=== PATIENT | female | born 1945 | race American Indian/Alaskan Native ===

== ENCOUNTER 2021-05-24 21:38 | Emergency (ER) | payer MEDICARE ==
--- NOTE | 2021-05-24 21:59 | Emergency Department Report ---
Blank Doc - Documentation Documentation: [facility] Consult Note # Demographics Consult Type: Acute Stroke Level 1 (0-4.5 hrs) Patient Location: Emergency Room First Name: Clau Last Name: Christos Age: 75 Gender: Female Facility: [facility] Time of Initial Page (): 05/24/2021, 21:30 Time of Return Call ( Time): 05/24/2021, 21:30 # HPI History: 1800 was last well per EMS, then at 2100 found down and noted to have facial droop and weakness on the right. # Scores Time of exam and NIHSS (): 05/24/2021, 21:45 Level of Consciousness 1a: [0] = Alert; keenly responsive LOC Questions 1b: [2] = Answers neither correctly LOC Commands 1c: [0] = Performs both tasks correctly Best Gaze 2: [0] = Normal Visual 3: [0] = No visual loss Facial Palsy 4: [0] = Normal symmetrical movements Motor Arm Left 5a: [0] = No drift Motor Arm Right 5b: [3] = No effort against gravity Motor Leg Left 6a: [0] = No drift Motor Leg Right 6b: [3] = No effort against gravity Limb Ataxia 7: [0] = Absent Sensory 8: [0] = Normal Best Language 9: [3] = Mute Dysarthria 10: [0] = Normal Extinction and Inattention 11: [0] = No abnormality NIHSS Total: 11 # Data Time Head CT personally read by me (): 05/24/2021, 21:[address]: no bleed early ischemic change preliminarily reviewed by me, please refer to radiology read for official reading # Assessment Impression: Ischemic Stroke (Acute) # Plan Thrombolytic/Intervention: NOT IV Thrombolysis or IA Intervention candidate Thrombolytic Exclusion (< 3 hour window): time of onset unclear Thrombolytic Exclusion: pt with late acute/subacute left MCA stroke on CT, making her last well time suspected to be over 4.5 hours old Intraarterial Exclusion: unfavorable imaging/hypodensity Blood Pressure Management: nicardipine labetolol Target Blood Pressure: SBP < 220 SBP > 100 Labs: hemoglobin A1c lipid panel Imaging: (urgency: STAT): CT Angiogram Head and CT Angiogram Neck AND call back with results if abnormal Imaging: (urgency: routine): MRI Brain without contrast Diagnostic Test: echo without bubble study Therapy/Evaluation: NPO until swallow evaluation PT/OT evaluation speech/swallow consultation Medication: start statin with goal of LDL < 70 DVT Prophylaxis: SCD Other: LDL < 70 If patient has any neurological deterioration please call me back immediately permissive hypertension telemetry monitoring I have discussed my recommendations with the referring provider # Logistics Telemedicine: Interactive 2 way audio and visual telecommunication technology was utilized during this visit
[2021-05-24 22:09] LABS: Basophils % (Auto) 0.6 % (0.0-1.8); Eosinophils # (Auto) 0.1 K/mm3 (0.0-0.4); Eosinophils % (Auto) 1.1 % (0.0-4.3); Lymphocytes # (Auto) 0.9 K/mm3 (1.2-5.4); Lymphocytes % (Auto) 10.9 % (13.4-35.0); Mean Corpuscular HGB Conc 32 % (30-34); Mean Corpuscular Volume 93 fl (79-97); Monocytes # (Auto) 0.6 K/mm3 (0.0-0.8); Monocytes % (Auto) 7.3 % (0.0-7.3); Platelet Count 237 K/mm3 (140-440); Red Blood Count 4.43 M/mm3 (3.65-5.03); Red Cell Distribution Width 13.4 % (13.2-15.2)
--- NOTE | 2021-05-24 22:17 | Cat Scan Report ---
. CT head without contrast HISTORY: CODE STROKE PROTOCOL!!! Stroke-Like Symptoms ER# [id number], LKW 6PM, RIGHT SIDE FACIAL D ROOPING, RIGHT SIDE WEAKNESS, NONVERBAL. TECHNIQUE: Axial imaging performed from the skull apex through the skull base without the use of con trast. All CT scans at this location are performed using CT dose reduction for ALARA by means of aut omated exposure control. COMPARISON: None FINDINGS: Parenchyma: There is extensive beam hardening artifact. No obvious hemorrhage or gross parenchymal a bnormality. Bilateral periventricular and deep white matter hypodensities are most likely in keeping with microangiopathy. Ventricles: There is mild diffuse brain atrophy with commensurate ventricular enlargement which is l ikely age appropriate. Soft tissues: Soft tissues including the orbits appear normal. Bones: No acute osseous abnormality. Sinuses: Sinuses are clear. Small amount of fluid in the mastoid air cells bilaterally but overall g reatest on the right. IMPRESSION: Extensive beam hardening artifact with no gross acute abnormality. COMMUNICATION: Time of Communication (SUPERVISOR ELECTRON TUBE PROCESSING/CDT): 9:12 pm Licensed Practitioner Receiving Report: Dr. Vee Signer Name: Arash Scott MD Signed: 05/24/2021 10:13 PM Workstation Name: [employer]
[2021-05-24 22:20] LABS: INR 0.98 (0.87-1.13)
[2021-05-24 22:21] LABS: Partial Thromboplastin Time 35.4 Sec. (24.2-36.6)
--- NOTE | 2021-05-24 22:24 | Emergency Department Report ---
ED Neuro Deficit HPI - General Stated Complaint: Right SIDED WEAKNESS Time Seen by Provider: 05/24/21 21:40 - History of Present Illness Initial Comments: Patient is a 75-year-old F [place]er female with past medical history of hypertension who is presenting with right-sided deficit and inability to speak. Paramedics state that her son saw her earlier in the day. Believes last time she was seen well was approximately 6 PM. On his arrival prior to the patient was being brought to the emergency department patient was unable to speak in exhibiting right-sided weakness with facial droop. Son found the patient lying on the ground. No evidence of any trauma. Patient is unable to give any additional history herself secondary to her medical condition. - Related Data Allergies/Adverse Reactions: Allergies Allergy/AdvReac Type Severity Reaction Status Date / Time No Known Allergies Allergy Unverified 05/24/21 22:24 ED Review of Systems ROS: Stated complaint: LEFT SIDED WEAKNESS Other details as noted in HPI Comment: Unobtainable due to pts medical conditions ED Past Medical Hx - Past Medical History Hx Hypertension: Yes ED Neuro Physical Exam - General Limitations: No Limitations, Altered Mental Status General appearance: alert Suspected Stroke: Yes - Head Head exam: Present: atraumatic, normocephalic, other (Right-sided facial droop) - Eye Eye exam: Present: normal appearance, PERRL, EOMI - ENT ENT exam: Present: mucous membranes moist - Neck Neck exam: Present: normal inspection - Respiratory Respiratory exam: Present: normal lung sounds bilaterally. Absent: respiratory distress, wheezes, rales, rhonchi - Cardiovascular Cardiovascular Exam: Present: regular rate, normal rhythm, normal heart sounds. Absent: systolic murmur, diastolic murmur, rubs, gallop - GI/Abdominal GI/Abdominal exam: Present: soft, normal bowel sounds. Absent: distended, tenderness, guarding, rebound - Extremities Exam Extremities exam: Present: normal inspection - Back Exam Back exam: Present: normal inspection - Neurological Exam Neurological exam: Present: alert, altered, motor sensory deficit. Absent: CN II-XII intact - NIHSS Assessment Interval: Baseline 1a. Level of Consciousness: arousable/minor stimuli 1b. LOC Questions: aphasic 1c. LOC Commands: performs tasks correctly 2. Best Gaze: normal 3. Visual: no visual loss 4. Facial Palsy: minor paralysis 5b. Motor Arm Right: no gravity effort 5a. Motor Arm Left: no drift 6a. Motor Leg Left: no drift 6b. Motor Leg Right: no gravity effort 7. Limb Ataxia: absent 8. Sensory: normal 9. Best Language: severe aphasia 10. Dysarthria: mute/anarrthric 11. Extinction/Inattention: visual/tactile inattention Total Score: 15 Stroke Severity: Moderate Stroke - Psychiatric Psychiatric exam: Present: flat affect - Skin Skin exam: Present: warm, dry, intact, normal color. Absent: rash ED Course Vital Signs 05/24/21 05/24/21 05/24/21 22:03 22:05 22:12 Temperature 98 F Pulse Rate 77 73 Respiratory 12 22 Rate Blood Pressure Blood Pressure 168/91 [Left] O2 Sat by Pulse 99 99 98 Oximetry 05/24/21 05/24/21 05/24/21 22:15 22:30 23:00 Temperature Pulse Rate 76 67 74 Respiratory 14 17 20 Rate Blood Pressure 168/91 151/88 148/87 Blood Pressure [Left] O2 Sat by Pulse 96 98 97 Oximetry 05/24/21 23:30 Temperature Pulse Rate 76 Respiratory 22 Rate Blood Pressure 160/95 Blood Pressure [Left] O2 Sat by Pulse 99 Oximetry - Lab Data Result diagrams: 05/24/21 22:04 05/24/21 22:04 Lab Results 05/24/21 05/24/21 05/24/21 Range/Units 21:42 22:04 22:04 WBC 8.1 (4.5-11.0) K/mm3 RBC 4.43 (3.65-5.03) M/mm3 Hgb 13.0 (10.1-14.3) gm/dl Hct 41.0 (30.3-42.9) % MCV 93 (79-97) fl MCH 29 (28-32) pg MCHC 32 (30-34) % RDW 13.4 (13.2-15.2) % Plt Count 237 (140-440) K/mm3 Lymph % (Auto) 10.9 L (13.4-35.0) % Riley % (Auto) 7.3 (0.0-7.3) % Eos % (Auto) 1.1 (0.0-4.3) % Baso % (Auto) 0.6 (0.0-1.8) % Lymph # (Auto) 0.9 L (1.2-5.4) K/mm3 Riley # (Auto) 0.6 (0.0-0.8) K/mm3 Eos # (Auto) 0.1 (0.0-0.4) K/mm3 Baso # (Auto) 0.0 (0.0-0.1) K/mm3 Seg Neutrophils % 80.1 H (40.0-70.0) % Seg Neutrophils # 6.5 (1.8-7.7) K/mm3 PT 14.1 (12.2-14.9) Sec. INR 0.98 (0.87-1.13) APTT 35.4 (24.2-36.6) Sec. Thrombin Time 21.0 H (15.1-19.6) Sec. Sodium (137-145) mmol/L Potassium (3.6-5.0) mmol/L Chloride (98-107) mmol/L Carbon Dioxide (22-30) mmol/L Anion Gap mmol/L BUN (7-17) mg/dL Creatinine (0.6-1.2) mg/dL Estimated GFR ml/min BUN/Creatinine Ratio % Glucose (65-100) mg/dL POC Glucose 116 H (70-105) mg/dL Calcium (8.4-10.2) mg/dL Total Bilirubin (0.1-1.2) mg/dL AST (5-40) units/L ALT (7-56) units/L Alkaline Phosphatase (35-129) units/L Total Creatine Kinase (30-135) units/L CK-MB (CK-2) (0.0-4.0) ng/mL CK-MB (CK-2) Rel Index (0-4) Troponin T (0.00-0.029) ng/mL Total Protein (6.3-8.2) g/dL Albumin (3.9-5) g/dL Albumin/Globulin Ratio % Plasma/Serum Alcohol (0-0.07) % 05/24/21 05/24/21 Range/Units 22:04 22:04 WBC (4.5-11.0) K/mm3 RBC (3.65-5.03) M/mm3 Hgb (10.1-14.3) gm/dl Hct (30.3-42.9) % MCV (79-97) fl MCH (28-32) pg MCHC (30-34) % RDW (13.2-15.2) % Plt Count (140-440) K/mm3 Lymph % (Auto) (13.4-35.0) % Riley % (Auto) (0.0-7.3) % Eos % (Auto) (0.0-4.3) % Baso % (Auto) (0.0-1.8) % Lymph # (Auto) (1.2-5.4) K/mm3 Riley # (Auto) (0.0-0.8) K/mm3 Eos # (Auto) (0.0-0.4) K/mm3 Baso # (Auto) (0.0-0.1) K/mm3 Seg Neutrophils % (40.0-70.0) % Seg Neutrophils # (1.8-7.7) K/mm3 PT (12.2-14.9) Sec. INR (0.87-1.13) APTT (24.2-36.6) Sec. Thrombin Time (15.1-19.6) Sec. Sodium 137 (137-145) mmol/L Potassium 4.4 (3.6-5.0) mmol/L Chloride 101.8 (98-107) mmol/L Carbon Dioxide 21 L (22-30) mmol/L Anion Gap 19 mmol/L BUN 25 H (7-17) mg/dL Creatinine 1.2 (0.6-1.2) mg/dL Estimated GFR 53 ml/min BUN/Creatinine Ratio 21 % Glucose 136 H (65-100) mg/dL POC Glucose (70-105) mg/dL Calcium 8.7 (8.4-10.2) mg/dL Total Bilirubin 0.30 (0.1-1.2) mg/dL AST 15 (5-40) units/L ALT 9 (7-56) units/L Alkaline Phosphatase 46 (35-129) units/L Total Creatine Kinase 160 H (30-135) units/L CK-MB (CK-2) 2.9 (0.0-4.0) ng/mL CK-MB (CK-2) Rel Index 1.8 (0-4) Troponin T < 0.010 (0.00-0.029) ng/mL Total Protein 5.6 L (6.3-8.2) g/dL Albumin 3.4 L (3.9-5) g/dL Albumin/Globulin Ratio 1.5 % Plasma/Serum Alcohol < 0.01 (0-0.07) % - EKG Data -: EKG Interpreted by Me 05/24/21 22:52 EKG shows sinus rhythm with a rate of 83. [place] normal intervals normal no ST segment elevation or depressions. Time of interpretation 2209 - Radiology Data Radiology results: image reviewed (Per my interpretation the patient has an acute occlusion of the left MCA) . CT head without contrast HISTORY: CODE STROKE PROTOCOL!!! Stroke-Like Symptoms ER# [id number], LKW 6PM, RIGHT SIDE FACIAL DROOPING, RIGHT SIDE WEAKNESS, NONVERBAL. TECHNIQUE: Axial imaging performed from the skull apex through the skull base without the use of contrast. All CT scans at this location are performed using CT dose reduction for ALARA by means of automated exposure control. COMPARISON: None FINDINGS: Parenchyma: There is extensive beam hardening artifact. No obvious hemorrhage or gross parenchymal abnormality. Bilateral periventricular and deep white matter hypodensities are most likely in keeping with microangiopathy. Ventricles: There is mild diffuse brain atrophy with commensurate ventricular enlargement which is likely age appropriate. Soft tissues: Soft tissues including the orbits appear normal. Bones: No acute osseous abnormality. Sinuses: Sinuses are clear. Small amount of fluid in the mastoid air cells bilaterally but overall greatest on the right. IMPRESSION: Extensive beam hardening artifact with no gross acute abnormality. COMMUNICATION: Time of Communication (STEP DOWN SPECIALIST/CDT): 9:12 pm Licensed Practitioner Receiving Report: Dr. Vee - Medical Decision Making 0050: Patient is a 75-year-old F [place] female with a past medical history of hypertension who is presenting with right-sided weakness and aphasia. Did have the patient talk to her daughter briefly and she did seem briefly to recognize her daughter however could tell this there was still some confusion as she appeared to be easily distracted and began looking away. She did smile her daughter twice. CT of the head showed no hemorrhage. CTA reading was delayed however per my interpretation the patient has a occlusion of the left MCA. Discussed the case with the neuro interventionalists at [place] and he agrees after looking at the films that the patient is a candidate for thrombus removal. Patient is not a TPA candidate secondary to there being some confusion regarding the patient's last known well time. Unfortunately there will be an additional delay beyond the conversation with the neuro interventionalists secondary to there being issues with transportation. Unable to fly the patient due to weather and transport ambulance services giving long wait times for transport. Will attempt to continue to transport the patient to [place]. She has been accepted. Critical Care Time: Yes (30) Critical care attestation.: If time is entered above; I have spent that time in minutes in the direct care of this critically ill patient, excluding procedure time. ED Disposition Clinical Impression: Acute cerebrovascular accident (CVA) due to occlusion of left middle cerebral artery Disposition: [facility] Is pt being admited?: No Does the pt Need Aspirin: No Condition: Stable Time of Disposition: 00:56
[2021-05-24 22:25] LABS: Creatine Kinase MB 2.9 ng/mL (0.0-4.0)
[2021-05-24 22:27] LABS: Alanine Aminotransferase 9 units/L (7-56); Albumin 3.4 g/dL (3.9-5); BUN/Creatinine Ratio 21; Blood Urea Nitrogen 25 mg/dL (7-17); Calcium 8.7 mg/dL (8.4-10.2); Hemolysis Index 8
[2021-05-25] MEDS ORDERED: ASPIRIN 300 MG RECT SUPP PR ONE (00:32)
--- NOTE | 2021-05-25 01:09 | Cat Scan Report ---
CT angio neck INDICATION / CLINICAL INFORMATION: 75 years Female; Post-CODE STROKE PROTOCOL!!! Stroke-Like Symptoms 100ML OF [address] melany-Like Symptoms ER# [id number], LKW 6PM, RIGHT SIDE FACIAL DROOPING, RIGHT SIDE WEAKNESS, NONVERBA L. TECHNIQUE: Thin cut axial images obtained through the head during IV bolus contrast administration. S agittal, coronal, and 3 plane MIP reconstructions performed by the technologist. NASCET type criteria used evaluate stenoses. All CT scans at this location are performed using CT dose reduction for ALAR A by means of automated exposure control. COMPARISON: None available. FINDINGS: CAROTID ARTERIES: The motion and beam hardening significantly degrades the image quality, particularl y evaluating the more proximal vessels. However, there is small focus of calcification involving the right carotid bifurcation. However, there is no significant stenosis of the internal carotid arteries by NASCET criteria. There is medial positioning of the carotid bifurcations which represents a devel opmental variant. Again, the proximal cerebral arteries are limited by the degree of motion artifact and suboptimal contrast bolus. VERTEBRAL ARTERIES: The proximal vertebral arteries are also obscured by the degree of artifact. 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 There is no significant focal st enosis involving the visualized vertebral vessels. ARCH: The arch vessels are also limited by the degree of artifact. There is mild calcification involv ing aortic arch. However, there is no gross evidence of significant stenosis of the visualized arch v essels. ADDITIONAL FINDINGS: Remainder of the surrounding soft tissues are grossly normal. IMPRESSION: The study is limited by motion. However, there is no clear CTA evidence of significant stenosis invol ving internal carotid arteries by NASCET criteria. 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 I was not initially contacted at the completion of this exam resulting in some delay in the dictation of this study. Signer Name: Zac Layton MD Signed: 05/25/2021 1:04 AM Workstation Name: [id number]
--- NOTE | 2021-05-25 01:16 | Cat Scan Report ---
CT angio head INDICATION / CLINICAL INFORMATION: 75 years Female; Post-CODE STROKE PROTOCOL!!! 100ML OF 350 OMNIPAQUE GIVEN Stroke-Like Symptoms ER# [id number], LKW 6PM, RIGHT SIDE FACIAL DROOPING, RIGHT SIDE WEAKNESS, NONVERBAL. TECHNIQUE: Thin cut axial images obtained through the head during IV bolus contrast administration. S agittal, coronal, and 3 plane MIP reconstructions performed by the technologist. NASCET type criteria used evaluate stenoses. Automated exposure control utilized for radiation reduction purposes. COMPARISON: None available. FINDINGS: INTERNAL CAROTID ARTERIES: The motion degrades the image quality. There is extensive atherosclerotic calcification involving the intracranial ICAs with mild segmental narrowing on the left. VERTEBROBASILAR SYSTEM: There is developmental origin of the posterior cerebral arteries bilate rally with associated hypoplasia of the vertebral basilar system. However, there is no clear evidence of significant focal stenosis. CEREBRAL ARTERIES: There is occlusion of the M1 segment of the left MCA approximately 1 cm from the o rigin. There is relative poor collateralization with only very faint vessel seen involving the most d istal segments. Otherwise, the remaining proximal cerebral arteries and adjacent segments appear to demonstrate appro priate caliber without significant stenosis. ANEURYSM: None identified. ADDITIONAL FINDINGS: Remainder of the surrounding soft tissues are grossly normal. IMPRESSION: There is occlusion of the left MCA as detailed above. I was not contacted at the completion of this exam resulting in some delay in the dictation Signer Name: Zac Layton MD Signed: 05/25/2021 1:11 AM Workstation Name: [id number]
[2021-05-25] MEDS ORDERED: ONDANSETRON 4 MG/2 ML INJ IV ONE (05:14)
[2021-05-25] MEDS ORDERED: ONDANSETRON 4 MG/2 ML INJ ONE (05:14)
[2021-05-25 06:10] VITALS: BP 137/67
--- NOTE | 2021-05-25 11:06 | Electrocardiograph Report ---
[facility] Test Date: 2021-05-24 Test Time: 22:07:07 Pat Name: MICHAEL LEROY Department: Room: Gender: F Television Tube Inspector: ODALYS : 1945 Requested By: JOSEFA APPIAH Order Number: [id number] Reading MD: Tyrel Sykes Measurements Intervals [place] Rate: 83 P: 60 GA: 147 QRS: 56 QRSD: 83 T: 75 QT: 403 QTc: 472 Interpretive Statements Sinus rhythm No previous ECG available for comparison Electronically Signed On 05-25-2021 11:05:53 EST by Tyrel Sykes
== END 2021-05-25 06:18 ==
LOC: ED 21:38
DX: I63.512 Cerebral infarction due to unspecified occlusion or stenosis of left middle cerebral artery (principal); I10 Essential (primary) hypertension
CPT/HCPCS: 36415; 70450; 70496; 70498; 80053; 82550; 82553; 82962; 84484; 85025; 85610; 85670; 85730; 93005; 96374; 99285; J2405; Q9967; 80320; G0480

== ENCOUNTER 2021-10-23 01:32 | Inpatient (IN) | payer MEDICARE ==
--- NOTE | 2021-10-23 02:01 | Cat Scan Report ---
CT HEAD WITHOUT CONTRAST INDICATION / CLINICAL INFORMATION: CODE STROKE. New onset of right-sided weakness. History of prior l eft MCA infarction. TECHNIQUE: CT head was performed without administration of intravenous contrast. All CT scans at this location are performed using CT dose reduction for ALARA by means of automated exposure control. COMPARISON: CT head 05/24/2021 FINDINGS: CEREBRAL HEMISPHERES: Evolution of left MCA infarction with large region of encephalomalacia since co mparison study. Moderate motion artifact. Generalized atrophy and findings compatible with microvascu lar ischemia. HEMORRHAGE: None. CEREBELLUM / BRAINSTEM: No significant abnormality. ORBITS: No significant abnormality. SOFT TISSUES: No significant abnormality. SKULL: No significant abnormality. PARANASAL SINUSES / MASTOID AIR CELLS: Normal as visualized. ADDITIONAL FINDINGS: None. IMPRESSION: 1. Large territory of left MCA encephalomalacia compatible with previous infarction. No obvious acute ischemic change. MRI recommended for further characterization. CODE STROKE Time of Communication (FAITH DOCTOR/CDT): 0056 hours Licensed Practitioner Receiving Report: Dr. Ana Vail Signer Name: Irwin Hays II, MD Signed: 10/23/2021 1:57 AM Workstation Name: [id number]
--- NOTE | 2021-10-23 02:08 | Emergency Department Report ---
HPI - HPI HPI: Room 24 The patient is a 76-year-old female presenting with a chief complaint of altered mental status. Per EMS the patient has a history of previous stroke with right- sided weakness and aphasia. EMS was called after the patient was found to be unresponsive and appeared to be leaning to her right side more than normal. EMS states that the patient was found with her eyes open looking around but not responding or making eye contact which is unusual for her. However, upon arrival to the ED the patient appears to be closer to her baseline where she is aphasic but she answers questions by nodding and shaking her head. Patient currently acknowledges she has no complaints ED Past Medical Hx - Past Medical History Hx Hypertension: Yes Hx CVA: Yes (Right-sided weakness) - Surgical History Additional Surgical History: UTO - Family History Family history: no significant - Social History Smoking Status: Unknown if ever smoked - Medications Home Medications: Home Medications Medication Instructions Recorded Confirmed Last Taken Type Amlodipine Besylate/Benazepril 1 each PO DAILY 05/25/21 05/25/21 Unknown History [Amlodipine-Benazepril 10-40 mg] atenoloL [Tenormin] 50 mg PO DAILY 05/25/21 05/25/21 Unknown History ED Review of Systems ROS: Stated complaint: POSS STROKE Other details as noted in HPI Constitutional: no symptoms reported Eyes: denies: eye pain ENT: denies: throat pain Respiratory: no symptoms reported Cardiovascular: denies: chest pain Endocrine: no symptoms reported Gastrointestinal: denies: abdominal pain Genitourinary: denies: dysuria Musculoskeletal: denies: back pain Neurological: denies: headache Physical Exam - Physical Exam Physical Exam: GENERAL: The patient is well-developed well-nourished female lying on stretcher not appearing to be in acute distress. Patient does not speak but she acknowledges yes or no by nodding or shaking her head HEENT: Normocephalic. Atraumatic. Extraocular motions are intact. Patient has moist mucous membranes. NECK: Supple. Trachea midline CHEST/LUNGS: Clear to auscultation. There is no respiratory distress noted. HEART/CARDIOVASCULAR: Regular. There is no tachycardia. There is no gallop rub or murmur. ABDOMEN: Abdomen is soft, nontender. Patient has normal bowel sounds. There is no abdominal distention. SKIN: There is no rash. There is no edema. There is no diaphoresis. NEURO: The patient is awake and alert. The patient is cooperative. The patient has a dense right hemiparesis. The patient does not speak but makes eye contact and follows commands. Patient answers questions by shaking her head "no" or nodding it "yes." MUSCULOSKELETAL: There is no evidence of acute injury. ED Medical Decision Making - Lab Data Result diagrams: 10/23/21 02:06 10/23/21 02:06 Laboratory Tests 10/23/21 10/23/21 10/23/21 02:06 02:06 02:06 WBC 7.5 RBC 4.54 Hgb 13.4 Hct 41.1 MCV 91 MCH 30 MCHC 33 RDW 15.6 H Plt Count 289 Lymph % (Auto) 35.8 [address] Lane % (Auto) 9.0 H Eos % (Auto) 8.2 H Baso % (Auto) 0.5 Lymph # (Auto) 2.7 Lane # (Auto) 0.7 Eos # (Auto) 0.6 H Baso # (Auto) 0.0 Seg Neutrophils % 46.5 Seg Neutrophils # 3.5 PT 16.6 H INR 1.20 H APTT 45.1 H Thrombin Time 17.1 Sodium 142 Potassium 3.7 Chloride 103.2 Carbon Dioxide 22 Anion Gap 21 BUN 22 H Creatinine 0.9 Estimated GFR > 60 BUN/Creatinine Ratio 24 Glucose 108 H Calcium 9.7 - EKG Data -: EKG Interpreted by Tn EKG shows normal: sinus rhythm Rate: normal (81 beats per) - EKG Data When compared to previous EKG there are: previous EKG unavailable Interpretation: nonspecific ST-T wave tres - Radiology Data Radiology results: report reviewed (CT head), image reviewed (CT head) [facility] [address] [place] [address] Cat Scan Report Signed Patient: MICHAEL LEROY MR#: [id number] : 1945 Acct:[id number] Age/Sex: 76 / F ADM Date: 10/23/21 Loc: ED Attending Dr: Ordering Physician: JIMY LINDQUIST MD Date of Service: 10/23/21 Procedure(s): CT head/brain wo con Accession Number(s): [id number] cc: JIMY LINDQUIST MD CT HEAD WITHOUT CONTRAST INDICATION / CLINICAL INFORMATION: CODE STROKE. New onset of right-sided weakness. History of prior left MCA infarction. TECHNIQUE: CT head was performed without administration of intravenous contrast. All CT scans at this location are performed using CT dose reduction for ALARA by means of automated exposure control. COMPARISON: CT head 05/24/2021 FINDINGS: CEREBRAL HEMISPHERES: Evolution of left MCA infarction with large region of encephalomalacia since comparison study. Moderate motion artifact. Generalized atrophy and findings compatible with microvascular ischemia. HEMORRHAGE: None. CEREBELLUM / BRAINSTEM: No significant abnormality. ORBITS: No significant abnormality. SOFT TISSUES: No significant abnormality. SKULL: No significant abnormality. PARANASAL SINUSES / MASTOID AIR CELLS: Normal as visualized. ADDITIONAL FINDINGS: None. IMPRESSION: 1. Large territory of left MCA encephalomalacia compatible with previous infarction. No obvious acute ischemic change. MRI recommended for further characterization. CODE STROKE Time of Communication (OCEANOGRAPHY TEACHER/CDT): 0056 hours Licensed Practitioner Receiving Report: Dr. Ana Vail - Differential Diagnosis TIA, ICH, metabolic encephalopathy Critical care attestation.: If time is entered above; I have spent that time in minutes in the direct care of this critically ill patient, excluding procedure time. ED Disposition Clinical Impression: Transient neurological symptoms Disposition: ADMITTED INPATIENT Is pt being admited?: Yes Does the pt Need Aspirin: Yes Condition: Fair Time of Disposition: 04:50 (Care transferred to hospitalist (discussed with Dr. Hansen))
[2021-10-23 02:29] LABS: Basophils % (Auto) 0.5 % (0.0-1.8); Eosinophils # (Auto) 0.6 K/mm3 (0.0-0.4); Eosinophils % (Auto) 8.2 % (0.0-4.3); Hematocrit 41.1 % (30.3-42.9); Hemoglobin 13.4 gm/dl (10.1-14.3); Lymphocytes # (Auto) 2.7 K/mm3 (1.2-5.4); Lymphocytes % (Auto) 35.8 % (13.4-35.0); Mean Corpuscular HGB Conc 33 % (30-34); Mean Corpuscular Volume 91 fl (79-97); Monocytes # (Auto) 0.7 K/mm3 (0.0-0.8); Platelet Count 289 K/mm3 (140-440); Red Blood Count 4.54 M/mm3 (3.65-5.03); Red Cell Distribution Width 15.6 % (13.2-15.2)
[2021-10-23 02:30] LABS: BUN/Creatinine Ratio 24; Blood Urea Nitrogen 22 mg/dL (7-17); Calcium 9.7 mg/dL (8.4-10.2); Hemolysis Index 8
[2021-10-23 02:31] LABS: INR 1.2 (0.87-1.13); Thrombin Time 17.1 Sec. (15.1-19.6)
[2021-10-23 02:32] LABS: Partial Thromboplastin Time 45.1 Sec. (24.2-36.6)
--- NOTE | 2021-10-23 10:08 | History and Physical Report ---
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 Toshia nicole suffered left MCA CVA April 2021. Patient was seen here in April and noted to have on CTA and occlusion of the left MCA and was transferred emergently to [facility] for further evaluation. At baseline, patient has right hemiparesis and is aphasic. Patient is able to answer on occasion one- word responses but is essentially nonverbal. Patient is able to follow simple commands at baseline. Patient is also noted to be bedbound. Patient is to able to perform ADLs of eating with her left hand but that is essentially the extent of her functioning independently. The patient's daughter who was at the bedside gave history that patient had a slight change in her status from her usual baseline this morning. The daughter noted increased respirations with grunting in the other room. Daughter reports that when she went to check on her mother she noticed that she was not making eye contact and "staring into space". No witnessed seizure activity. No bowel or bladder incontinence. Patient is back to her baseline currently. Patient denies any pain or shortness of breath. Past History Past Medical History: hypertension, stroke Past Surgical History: No surgical history Social history: no significant social history Family history: no significant family history Medications and Allergies Allergies Allergy/AdvReac Type Severity Reaction Status Date / Time No Known Allergies Allergy Unverified 05/24/21 22:24 Home Medications Medication Instructions Recorded Confirmed Last Taken Type Amlodipine Besylate/Benazepril 1 each PO DAILY 05/25/21 05/25/21 Unknown History [Amlodipine-Benazepril 10-40 mg] atenoloL [Tenormin] 50 mg PO DAILY 05/25/21 05/25/21 Unknown History Review of Systems All systems: negative Exam - Constitutional Vitals: Temp Pulse Resp BP Pulse Ox 77 20 157/97 100 10/23/21 09:51 10/23/21 09:51 10/23/21 09:51 10/23/21 09:51 General appearance: Present: no acute distress, well-nourished - EENT Eyes: Present: PERRL ENT: hearing intact, clear oral mucosa - Neck Neck: Present: supple, normal ROM - Respiratory Respiratory effort: normal Respiratory: bilateral: CTA - Cardiovascular Heart Sounds: Present: S1 & S2. Absent: rub, click - Extremities Extremities: pulses symmetrical, No edema Peripheral Pulses: within normal limits - Abdominal General gastrointestinal: Present: soft, non-tender, non-distended, normal bowel sounds Female genitourinary: Present: normal - Integumentary Integumentary: Present: clear, warm, dry - Musculoskeletal Musculoskeletal: gait normal, strength equal bilaterally - Psychiatric Psychiatric: appropriate mood/affect, intact judgment & insight - Neurologic Neurologic: CNII-XII intact, other (Right hemiparesis, aphasic) Results - Labs CBC & Chem 7: 10/23/21 02:06 10/23/21 02:06 Labs: Laboratory Last Values WBC 7.5 K/mm3 (4.5-11.0) 10/23/21 02:06 RBC 4.54 M/mm3 (3.65-5.03) 10/23/21 02:06 Hgb 13.4 gm/dl (10.1-14.3) 10/23/21 02:06 Hct 41.1 % (30.3-42.9) 10/23/21 02:06 MCV 91 fl (79-97) 10/23/21 02:06 MCH 30 pg (28-32) 10/23/21 02:06 MCHC 33 % (30-34) 10/23/21 02:06 RDW 15.6 % (13.2-15.2) H 10/23/21 02:06 Plt Count 289 K/mm3 (140-440) 10/23/21 02:06 Lymph % (Auto) 35.8 % (13.4-35.0) H 10/23/21 02:06 [place] % (Auto) 9.0 % (0.0-7.3) H 10/23/21 02:06 Eos % (Auto) 8.2 % (0.0-4.3) H 10/23/21 02:06 Baso % (Auto) 0.5 % (0.0-1.8) 10/23/21 02:06 Lymph # (Auto) 2.7 K/mm3 (1.2-5.4) 10/23/21 02:06 [place] # (Auto) 0.7 K/mm3 (0.0-0.8) 10/23/21 02:06 Eos # (Auto) 0.6 K/mm3 (0.0-0.4) H 10/23/21 02:06 Baso # (Auto) 0.0 K/mm3 (0.0-0.1) 10/23/21 02:06 Seg Neutrophils % 46.5 % (40.0-70.0) 10/23/21 02:06 Seg Neutrophils # 3.5 K/mm3 (1.8-7.7) 10/23/21 02:06 PT 16.6 Sec. (12.2-14.9) H 10/23/21 02:06 INR 1.20 (0.87-1.13) H 10/23/21 02:06 APTT 45.1 Sec. (24.2-36.6) H 10/23/21 02:06 Thrombin Time 17.1 Sec. (15.1-19.6) 10/23/21 02:06 Sodium 142 mmol/L (137-145) 10/23/21 02:06 Potassium 3.7 mmol/L (3.6-5.0) 10/23/21 02:06 Chloride 103.2 mmol/L (98-107) 10/23/21 02:06 Carbon Dioxide 22 mmol/L (22-30) 10/23/21 02:06 Anion Gap 21 mmol/L 10/23/21 02:06 BUN 22 mg/dL (7-17) H 10/23/21 02:06 Creatinine 0.9 mg/dL (0.6-1.2) 10/23/21 02:06 Estimated GFR > 60 ml/min 10/23/21 02:06 BUN/Creatinine Ratio 24 % 10/23/21 02:06 Glucose 108 mg/dL (65-100) H 10/23/21 02:06 Calcium 9.7 mg/dL (8.4-10.2) 10/23/21 02:06 Assessment and Plan Assessment and plan: 76-year-old female with history of left MCA CVA and right hemiparesis/expressive aphasia and hypertension who presents to the emergency department with altered mentation. TIA History of left MCA CVA Right hemiparesis Expressive aphasia Hypertension 10/23/2021. Patient will be admitted to telemetry and monitored closely. We will consult neurology for further evaluation. Patient appears to only be on blood pressure medication and no meds for secondary prevention. We will follow- up with MRI and EEG for further evaluation.
[2021-10-23] MEDS ORDERED: ONDANSETRON 4 MG/2 ML INJ IV PRN ×2 (10:12)
[2021-10-23] MEDS ORDERED: MAGNESIUM HYDROXIDE (MOM) ORAL LIQD UDC PO PRN (10:12)
[2021-10-23] MEDS ORDERED: METOCLOPRAMIDE 10 MG TAB PO PRN (10:12)
[2021-10-23] MEDS ORDERED: PROMETHAZINE 25 MG RECT SUPP PR PRN (10:12)
[2021-10-23] MEDS ORDERED: HYDROcodone/ACETAMINOPHEN 5-325 MG TAB PO PRN (10:12)
[2021-10-23] MEDS ORDERED: ACETAMINOPHEN 325 MG TAB PO PRN ×2 (10:12)
[2021-10-23] MEDS ORDERED: MORPHINE 2 MG/1 ML INJ IV PRN (10:57)
--- NOTE | 2021-10-23 11:42 | Consultation ---
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 Patient suffered left MCA CVA April 2021. Patient was seen here in April and noted to have on CTA and occlusion of the left MCA and was transferred emergently to [facility] for further evaluation. At baseline, patient has right hemiparesis and is aphasic. Patient is able to answer on occasion one- word responses but is essentially nonverbal. Patient is able to follow simple commands at baseline. Patient is also noted to be bed bound. Patient is to able to perform ADLs of eating with her left hand but that is essentially the extent of her functioning independently. The patient's daughter who was at the bedside gave history that patient had a slight change in her status from her usual baseline this morning. The daughter noted increased respirations with grunting in the other room. Daughter reports that when she went to check on her mother she noticed that she was not making eye contact and "staring into space". No witnessed seizure activity. No bowel or bladder incontinence pt. wear dipper Patient is back to her baseline currently. Patient denies any pain or shortness of breath. today in ER she is responsive only to simple command ,say 1-[address] brain is remarkable for motion artifact and large left MCA infarct Past History Past Medical History: hypertension, stroke Past Surgical History: No surgical history Social history: no significant social history Family history: no significant family history Medications and Allergies Allergies Allergy/AdvReac Type Severity Reaction Status Date / Time No Known Allergies Allergy Unverified 05/24/21 22:24 Home Medications Medication Instructions Recorded Confirmed Last Taken Type Amlodipine Besylate/Benazepril 1 each PO DAILY 05/25/21 05/25/21 Unknown History [Amlodipine-Benazepril 10-40 mg] atenoloL [Tenormin] 50 mg PO DAILY 05/25/21 05/25/21 Unknown History Review of Systems All systems: unable to get pt. is aphasic Past History Past Medical History: hypertension, stroke Past Surgical History: No surgical history Social history: no significant social history Family history: no significant family history Medications and Allergies Allergies Allergy/AdvReac Type Severity Reaction Status Date / Time No Known Allergies Allergy Unverified 05/24/21 22:24 Home Medications Medication Instructions Recorded Confirmed Last Taken Type Amlodipine Besylate/Benazepril 1 each PO DAILY 05/25/21 05/25/21 Unknown History [Amlodipine-Benazepril 10-40 mg] atenoloL [Tenormin] 50 mg PO DAILY 05/25/21 05/25/21 Unknown History Active Meds: Active Medications Acetaminophen (Acetaminophen 325 Mg Tab) 650 mg PO Q4H PRN PRN Reason: Pain, Mild (1-3) Hydrocodone Bitart/Acetaminophen (Hydrocodone/Acetaminophen 5-325 Mg Tab) 2 each PO Q6H PRN PRN Reason: Pain, Moderate (4-6) Amlodipine Besylate (Amlodipine 10 Mg Tab) 10 mg PO DAILY MYESHA Aspirin (Aspirin 325 Mg Tab) 325 mg PO QDAY MYESHA Atenolol (Atenolol 50 Mg Tab) 50 mg PO DAILY MYESHA Atorvastatin Calcium (Atorvastatin 40 Mg Tab) 40 mg PO QHS MYESHA Bisacodyl (Bisacodyl 10 Mg Rect Supp) 10 mg [place] QDAY PRN PRN Reason: Constipation Heparin Sodium (Porcine) (Heparin 5,000 Unit/1 Ml Vial) 5,000 unit SUB-Q Q8HR MYESHA Lisinopril (Lisinopril 40 Mg Tab) 40 mg PO QDAY [facility] Magnesium Hydroxide (Magnesium Hydroxide (Mom) Oral Liqd Udc) 30 ml PO Q4H PRN PRN Reason: Constipation Metoclopramide HCl (Metoclopramide 10 Mg Tab) 10 mg PO Q6H PRN PRN Reason: Nausea And Vomiting Morphine Sulfate (Morphine 2 Mg/1 Ml Inj) 2 mg IV Q4H PRN PRN Reason: Pain, Severe (7-10) Ondansetron HCl (Ondansetron 4 Mg/2 Ml Inj) 4 mg IV Q8H PRN PRN Reason: Nausea And Vomiting Promethazine HCl (Promethazine 25 Mg Rect Supp) 25 mg KS Q6H PRN PRN Reason: Nausea And Vomiting Sodium Chloride (Sodium Chloride 0.9% 10 Ml Flush Syringe) 10 ml IV BID [facility] Sodium Chloride (Sodium Chloride 0.9% 10 Ml Flush Syringe) 10 ml IV PRN PRN PRN Reason: LINE FLUSH Physical Examination - Vital Signs Vital Signs: Vital Signs Pulse Resp BP Pulse Ox 76 18 143/92 98 10/23/21 01:34 10/23/21 01:34 10/23/21 01:34 10/23/21 01:34 - Constitutional General appearance: comfortable - EENT EENT: Present: PERRL, mucous membranes moist - Respiratory Respiratory: Present: lungs clear, rhonchi - Cardiovascular Cardiovascular: Present: regular rate, normal S1, normal S2 Extremities: Present: no peripheral edema bilatateraly, no clubbing, cyanosis - Gastrointestinal Gastrointestinal: Present: normoactive bowel sounds - Integumentary Integumentary: Present: normal - Neurologic Cranial nerve examination: PERRL, EOMI, facial droop Speech examination: motor aphasia Detailed motor examination: other (right hemiplegia with strength 1-2/5 with increse tone,reflexes are suppressed ,gait unable to do) - Level of Consciousness 1a. Level of Consciousness: alert/keenly responsive - LOC Questions 1b. LOC Questions: answers 1 question correctly - LOC Command 1c. LOC Commands: performs tasks correctly - Best Gaze 2. Best Gaze: normal - Visual 3. Visual: no visual loss - Facial Palsy 4. Facial Palsy: minor paralysis - Motor Arm 5a. Motor Arm Left: no drift 5b. Motor Arm Right: some gravity effort - Motor Leg 6a. Motor Leg Left: no drift 6b. Motor Leg Right: some gravity effort - Limb Ataxia 7. Limb Ataxia: absent - Sensory 8. Sensory: normal - Best Language 9. Best Language: severe aphasia - Dysarthria 10. Dysarthria: normal - Extinction and Inattention 11. Extinction/Inattention: no abnormality - Scoring Total Score: 8 Stroke Severity: Moderate Stroke Results - Laboratory Findings CBC and BMP: 10/23/21 02:06 10/23/21 02:06 Abnormal Lab Findings: Abnormal Labs 10/23/21 10/23/21 10/23/21 02:06 02:06 02:06 RDW 15.6 H Lymph % (Auto) 35.8 H Iron % (Auto) 9.0 H Eos % (Auto) 8.2 H Eos # (Auto) 0.6 H PT 16.6 H INR 1.20 H APTT 45.1 H BUN 22 H Glucose 108 H Assessment and Plan Assessment and Plan 76-year-old female with history of left MCA CVA and right hemiparesis/expressive aphasia and hypertension who presents to the emergency department with altered mentation. # today in ER she is back to her base line -NIH#8 -she is aphasic with right hemiplegia -TIA can not be excluded -Hx and exam is mostly suggestive of seizure -MRI brain -Neuro check q 4 hours -ASA 325 mg daily and Lipitor -EEG -start keppra 250 mg bid -PT/ST evaluate -LDl,A!C -echo cardiogram -US carotid -Ativan prn for seizure 1-2 mg IV # Hx of CVA -she is with dense right side weakness and expressive aphasia -maintain ASA and Lipitor -MRI brain # Hx of HTN -maintain her BP medication # HLP -LDL -lipitor 40 mg daily #Expressive aphasia -related to remote CVA -ST evaluate # Dt precaution -sq heparine will follow as needed
[2021-10-23] MEDS: HEPARIN 5,000 UNIT/1 ML VIAL SUB-Q SCH ×2 (14:38→23:50)
[2021-10-23] MEDS: levETIRAcetam 500 MG TAB PO SCH ×2 (14:38→23:50)
[2021-10-24] MEDS: HEPARIN 5,000 UNIT/1 ML VIAL SUB-Q SCH ×3 (05:37→22:40)
[2021-10-24 06:03] LABS: Basophils # (Auto) 0.1 K/mm3 (0.0-0.1); Basophils % (Auto) 1.1 % (0.0-1.8); Eosinophils # (Auto) 0.3 K/mm3 (0.0-0.4); Eosinophils % (Auto) 4.7 % (0.0-4.3); Hematocrit 40.6 % (30.3-42.9); Hemoglobin 13.2 gm/dl (10.1-14.3); Lymphocytes % (Auto) 28.1 % (13.4-35.0); Mean Corpuscular HGB Conc 32 % (30-34); Mean Corpuscular Volume 92 fl (79-97); Monocytes # (Auto) 0.8 K/mm3 (0.0-0.8); Monocytes % (Auto) 10.6 % (0.0-7.3); Platelet Count 242 K/mm3 (140-440); Red Blood Count 4.41 M/mm3 (3.65-5.03); Red Cell Distribution Width 15.5 % (13.2-15.2)
[2021-10-24 06:39] LABS: BUN/Creatinine Ratio 16; Blood Urea Nitrogen 11 mg/dL (7-17); Calcium 9.6 mg/dL (8.4-10.2); Chol/HDL Ratio 2.24 %; HDL Cholesterol 53 mg/dL (40-59); Hemolysis Index 92; LDL Cholesterol,Direct 51 mg/dL (50-130)
[2021-10-24] MEDS: levETIRAcetam 500 MG TAB PO SCH ×2 (09:38→22:40)
[2021-10-24] MEDS: LISINOPRIL 40 MG TAB PO SCH (09:39)
[2021-10-24] MEDS: atenoloL 50 MG TAB PO SCH (09:39)
[2021-10-24] MEDS: amLODIPine 10 MG TAB PO SCH (09:39)
[2021-10-24] MEDS: ASPIRIN 325 MG TAB PO SCH (09:42)
[2021-10-24] MEDS ORDERED: NON-FORMULARY EACH (Amlodipine Besylate/Benazepril [Amlodipine-Benazepril 10-40 Mg] 1 EACH PO SCH (10:00)
--- NOTE | 2021-10-24 10:23 | Progress Note ---
Assessment and Plan Assessment and plan: 76-year-old female with history of left MCA CVA and right hemiparesis/expressive aphasia and hypertension who presented to the ER with altered mentation. #TIA #History of left MCA CVA #Right hemiparesis #Expressive aphasia -initial CT of the head negative for acute findings, shows Large territory of left MCA encephalomalacia compatible with previous infarction -MRI, TTE, EEG, Carotid doppler pending -ASA for secondary prevention. keppra started for concern for seizure -Neurology consulted, assistance appreciated -PT/OT consulted #Hypertension -continue atenolol, amlodipine and lisinopril -goal SBP <160 while inpatient #Advanced care planning -Disease education conducted, care plan discussed, diagnoses discussed, progno sis discussed, and patient acknowledges understanding with care plan -Time: +30 min History Interval history: No acute events overnight. Patient responds with head nods and short phrases due to previous stroke. She denies headache, visual changes, chest pain and shortness of breath. Hospitalist Physical - Physical exam Narrative exam: GENERAL: Well-developed well-nourished. In no acute distress. HEENT: Normocephalic. Atraumatic. CHEST/LUNGS: CTAB on room air HEART/CARDIOVASCULAR: RRR. No murmur, rubs or gallops appreciated. ABDOMEN: +BS. NT/ND. SKIN: No rashes noted. NEURO: Aphasic. No other focal deficits noted. MUSCULOSKELETAL: No joint effusion EXTREMITIES: No cyanosis, clubbing or edema. PSYCH: Cooperative. - Constitutional Vitals: Temp Pulse Resp BP Pulse Ox 97.2 F L 78 20 138/83 98 10/24/21 07:35 10/24/21 07:35 10/24/21 08:24 10/24/21 07:35 10/24/21 08:24 General appearance: Present: no acute distress, well-nourished Results - Labs CBC & Chem 7: 10/24/21 04:33 10/24/21 04:33 Labs: Laboratory Last Values WBC 7.2 K/mm3 (4.5-11.0) 10/24/21 04:33 RBC 4.41 M/mm3 (3.65-5.03) 10/24/21 04:33 Hgb 13.2 gm/dl (10.1-14.3) 10/24/21 04:33 Hct 40.6 % (30.3-42.9) 10/24/21 04:33 MCV 92 fl (79-97) 10/24/21 04:33 MCH 30 pg (28-32) 10/24/21 04:33 MCHC 32 % (30-34) 10/24/21 04:33 RDW 15.5 % (13.2-15.2) H 10/24/21 04:33 Plt Count 242 K/mm3 (140-440) 10/24/21 04:33 Lymph % (Auto) 28.1 % (13.4-35.0) 10/24/21 04:33 [place] % (Auto) 10.6 % (0.0-7.3) H 10/24/21 04:33 Eos % (Auto) 4.7 % (0.0-4.3) H 10/24/21 04:33 Baso % (Auto) 1.1 % (0.0-1.8) 10/24/21 04:33 Lymph # (Auto) 2.0 K/mm3 (1.2-5.4) 10/24/21 04:33 [place] # (Auto) 0.8 K/mm3 (0.0-0.8) 10/24/21 04:33 Eos # (Auto) 0.3 K/mm3 (0.0-0.4) 10/24/21 04:33 Baso # (Auto) 0.1 K/mm3 (0.0-0.1) 10/24/21 04:33 Seg Neutrophils % 55.5 % (40.0-70.0) 10/24/21 04:33 Seg Neutrophils # 4.0 K/mm3 (1.8-7.7) 10/24/21 04:33 PT 16.6 Sec. (12.2-14.9) H 10/23/21 02:06 INR 1.20 (0.87-1.13) H 10/23/21 02:06 APTT 45.1 Sec. (24.2-36.6) H 10/23/21 02:06 Thrombin Time 17.1 Sec. (15.1-19.6) 10/23/21 02:06 Sodium 138 mmol/L (137-145) 10/24/21 04:33 Potassium 4.3 mmol/L (3.6-5.0) 10/24/21 04:33 Chloride 103.4 mmol/L (98-107) 10/24/21 04:33 Carbon Dioxide 21 mmol/L (22-30) L 10/24/21 04:33 Anion Gap 18 mmol/L 10/24/21 04:33 BUN 11 mg/dL (7-17) 10/24/21 04:33 Creatinine 0.7 mg/dL (0.6-1.2) 10/24/21 04:33 Estimated GFR > 60 ml/min 10/24/21 04:33 BUN/Creatinine Ratio 16 % 10/24/21 04:33 Glucose 87 mg/dL (65-100) 10/24/21 04:33 Calcium 9.6 mg/dL (8.4-10.2) 10/24/21 04:33 Triglycerides 74 mg/dL (2-149) 10/24/21 04:33 Cholesterol 119 mg/dL (50-199) 10/24/21 04:33 LDL Cholesterol Direct 51 mg/dL (50-130) 10/24/21 04:33 HDL Cholesterol 53 mg/dL (40-59) 10/24/21 04:33 Cholesterol/HDL Ratio 2.24 % 10/24/21 04:33 Fernandez/IV: Voiding Method External Female Catheter Active Medications - Current Medications Current Medications: Generic Name Dose Route Start Last Admin Trade Name Freq PRN Reason Stop Dose Admin Acetaminophen 650 mg 10/23/21 10:12 Acetaminophen 325 Mg Tab PO Q4H PRN Pain, Mild (1-3) Hydrocodone Bitart/Acetaminophen 2 each 10/23/21 10:12 Hydrocodone/Acetaminophen 5-325 Mg Tab PO Q6H PRN Pain, Moderate (4-6) Amlodipine Besylate 10 mg 10/24/21 10:00 10/24/21 09:39 Amlodipine 10 Mg Tab PO 10 mg DAILY MYESHA Administration Aspirin 325 mg 10/24/21 10:00 10/24/21 09:42 Aspirin 325 Mg Tab PO 325 mg QDAY MYESHA Administration Atenolol 50 mg 10/24/21 10:00 10/24/21 09:39 Atenolol 50 Mg Tab PO 50 mg DAILY MYESHA Administration Atorvastatin Calcium 40 mg 10/23/21 22:00 10/23/21 23:50 Atorvastatin 40 Mg Tab PO 40 mg QHS MYESHA Administration Bisacodyl 10 mg 10/23/21 10:12 Bisacodyl 10 Mg Rect Supp CO QDAY PRN Constipation Heparin Sodium (Porcine) 5,000 unit 10/23/21 14:00 10/24/21 05:37 Heparin 5,000 Unit/1 Ml Vial SUB-Q 5,000 unit Q8HR MYESHA Administration Levetiracetam 250 mg 10/23/21 13:00 10/24/21 09:38 Levetiracetam 500 Mg Tab PO 250 mg BID MYESHA Administration Lisinopril 40 mg 10/24/21 10:00 10/24/21 09:39 Lisinopril 40 Mg Tab PO 40 mg QDAY MYESHA Administration Magnesium Hydroxide 30 ml 10/23/21 10:12 Magnesium Hydroxide (Mom) Oral Liqd Udc PO Q4H PRN Constipation Metoclopramide HCl 10 mg 10/23/21 10:12 Metoclopramide 10 Mg Tab PO Q6H PRN Nausea And Vomiting Morphine Sulfate 2 mg 10/23/21 10:57 Morphine 2 Mg/1 Ml Inj IV Q4H PRN Pain, Severe (7-10) Ondansetron HCl 4 mg 10/23/21 10:12 Ondansetron 4 Mg/2 Ml Inj IV Q8H PRN Nausea And Vomiting Promethazine HCl 25 mg 10/23/21 10:12 Promethazine 25 Mg Rect Supp CO Q6H PRN Nausea And Vomiting Sodium Chloride 10 ml 10/23/21 22:00 10/24/21 09:44 Sodium Chloride 0.9% 10 Ml Flush Syringe IV 10 ml BID MYESHA Administration Sodium Chloride 10 ml 10/23/21 10:12 Sodium Chloride 0.9% 10 Ml Flush Syringe IV PRN PRN LINE FLUSH
[2021-10-25] MEDS: HEPARIN 5,000 UNIT/1 ML VIAL SUB-Q SCH ×3 (05:48→22:09)
[2021-10-25] MEDS: atenoloL 50 MG TAB PO SCH (09:34)
[2021-10-25] MEDS: ASPIRIN 325 MG TAB PO SCH (09:34)
[2021-10-25] MEDS: levETIRAcetam 500 MG TAB PO SCH ×2 (09:34→22:09)
[2021-10-25] MEDS: LISINOPRIL 40 MG TAB PO SCH (09:35)
[2021-10-25] MEDS: amLODIPine 10 MG TAB PO SCH (09:35)
--- NOTE | 2021-10-25 12:52 | Progress Note ---
Assessment and Plan Assessment and plan: 76-year-old female with history of left MCA CVA and right hemiparesis/expressive aphasia and hypertension who presented to the ER with altered mentation. #TIA #History of left MCA CVA #Right hemiparesis #Expressive aphasia -initial CT of the head negative for acute findings, shows Large territory of left MCA encephalomalacia compatible with previous infarction -MRI brain with and without contrast and Carotid doppler pending. -TTE revealing EF 50-55% with normal-sized LV, normal LV systolic function, mild hypokinesis in the basal inferoseptal wall, mild hypokinesis in the basal anterolateral wall. -ASA for secondary prevention. keppra started for concern for seizure -Neurology consulted, assistance appreciated -PT/OT consulted and recommending patient can be discharged home without need for physical therapy #Hypertension -continue atenolol, amlodipine and lisinopril -goal SBP <160 while inpatient #Advanced care planning -Disease education conducted, care plan discussed, diagnoses discussed, p rognosis discussed, and patient acknowledges understanding with care plan -Time: +30 min #Discharge planning - Patient is pending MRI brain with and without and carotid Dopplers - Case management has been made aware. Disposition Plan: Continue medical management Total Time Spent with Patient (Minutes): 45 minutes History Interval history: No acute events overnight. Hospitalist Physical - Constitutional Vitals: Temp Pulse Resp BP Pulse Ox 97.8 F 69 17 102/62 98 10/25/21 11:31 10/25/21 11:31 10/25/21 03:51 10/25/21 11:31 10/25/21 12:11 General appearance: Present: no acute distress, well-nourished, other (Aphasia) - EENT Eyes: Present: PERRL, EOM intact ENT: hearing intact, clear oral mucosa - Neck Neck: Present: supple, normal ROM - Respiratory Respiratory effort: normal Respiratory: bilateral: CTA - Cardiovascular Rhythm: regular Heart Sounds: Present: S1 & S2 - Extremities Extremities: no ischemia, pulses intact, pulses symmetrical, No edema, normal temperature, normal color Peripheral Pulses: within normal limits - Abdominal General gastrointestinal: soft, non-tender, non-distended, normal bowel sounds - Integumentary Integumentary: Present: clear, warm, dry - Psychiatric Psychiatric: appropriate mood/affect, memory intact, cooperative - Neurologic Neurologic: CNII-XII intact - Allied Health Allied health notes reviewed: nursing Results - Labs CBC & Chem 7: 10/24/21 04:33 10/24/21 04:33 Labs: Laboratory Last Values WBC 7.2 K/mm3 (4.5-11.0) 10/24/21 04:33 RBC 4.41 M/mm3 (3.65-5.03) 10/24/21 04:33 Hgb 13.2 gm/dl (10.1-14.3) 10/24/21 04:33 Hct 40.6 % (30.3-42.9) 10/24/21 04:33 MCV 92 fl (79-97) 10/24/21 04:33 MCH 30 pg (28-32) 10/24/21 04:33 MCHC 32 % (30-34) 10/24/21 04:33 RDW 15.5 % (13.2-15.2) H 10/24/21 04:33 Plt Count 242 K/mm3 (140-440) 10/24/21 04:33 Lymph % (Auto) 28.1 % (13.4-35.0) 10/24/21 04:33 Merrick % (Auto) 10.6 % (0.0-7.3) H 10/24/21 04:33 Eos % (Auto) 4.7 % (0.0-4.3) H 10/24/21 04:33 Baso % (Auto) 1.1 % (0.0-1.8) 10/24/21 04:33 Lymph # (Auto) 2.0 K/mm3 (1.2-5.4) 10/24/21 04:33 Merrick # (Auto) 0.8 K/mm3 (0.0-0.8) 10/24/21 04:33 Eos # (Auto) 0.3 K/mm3 (0.0-0.4) 10/24/21 04:33 Baso # (Auto) 0.1 K/mm3 (0.0-0.1) 10/24/21 04:33 Seg Neutrophils % 55.5 % (40.0-70.0) 10/24/21 04:33 Seg Neutrophils # 4.0 K/mm3 (1.8-7.7) 10/24/21 04:33 PT 16.6 Sec. (12.2-14.9) H 10/23/21 02:06 INR 1.20 (0.87-1.13) H 10/23/21 02:06 APTT 45.1 Sec. (24.2-36.6) H 10/23/21 02:06 Thrombin Time 17.1 Sec. (15.1-19.6) 10/23/21 02:06 Sodium 138 mmol/L (137-145) 10/24/21 04:33 Potassium 4.3 mmol/L (3.6-5.0) 10/24/21 04:33 Chloride 103.4 mmol/L (98-107) 10/24/21 04:33 Carbon Dioxide 21 mmol/L (22-30) L 10/24/21 04:33 Anion Gap 18 mmol/L 10/24/21 04:33 BUN 11 mg/dL (7-17) 10/24/21 04:33 Creatinine 0.7 mg/dL (0.6-1.2) 10/24/21 04:33 Estimated GFR > 60 ml/min 10/24/21 04:33 BUN/Creatinine Ratio 16 % 10/24/21 04:33 Glucose 87 mg/dL (65-100) 10/24/21 04:33 Hemoglobin A1c 5.3 % (4-6) 10/25/21 08:18 Calcium 9.6 mg/dL (8.4-10.2) 10/24/21 04:33 Triglycerides 74 mg/dL (2-149) 10/24/21 04:33 Cholesterol 119 mg/dL (50-199) 10/24/21 04:33 LDL Cholesterol Direct 51 mg/dL (50-130) 10/24/21 04:33 HDL Cholesterol 53 mg/dL (40-59) 10/24/21 04:33 Cholesterol/HDL Ratio 2.24 % 10/24/21 04:33 Fernandez/IV: Voiding Method External Female Catheter Active Medications - Current Medications Current Medications: Generic Name Dose Route Start Last Admin Trade Name Freq PRN Reason Stop Dose Admin Acetaminophen 650 mg 10/23/21 10:12 Acetaminophen 325 Mg Tab PO Q4H PRN Pain, Mild (1-3) Hydrocodone Bitart/Acetaminophen 2 each 10/23/21 10:12 Hydrocodone/Acetaminophen 5-325 Mg Tab PO Q6H PRN Pain, Moderate (4-6) Amlodipine Besylate 10 mg 10/24/21 10:00 10/25/21 09:35 Amlodipine 10 Mg Tab PO 10 mg DAILY MYESHA Administration Aspirin 325 mg 10/24/21 10:00 10/25/21 09:34 Aspirin 325 Mg Tab PO 325 mg QDAY MYESHA Administration Atenolol 50 mg 10/24/21 10:00 10/25/21 09:34 Atenolol 50 Mg Tab PO 50 mg DAILY MYESHA Administration Atorvastatin Calcium 40 mg 10/23/21 22:00 10/24/21 22:40 Atorvastatin 40 Mg Tab PO 40 mg QHS MYESHA Administration Bisacodyl 10 mg 10/23/21 10:12 Bisacodyl 10 Mg Rect Supp IN QDAY PRN Constipation Heparin Sodium (Porcine) 5,000 unit 10/23/21 14:00 10/25/21 05:48 Heparin 5,000 Unit/1 Ml Vial SUB-Q 5,000 unit Q8HR MYESHA Administration Levetiracetam 250 mg 10/23/21 13:00 10/25/21 09:34 Levetiracetam 500 Mg Tab PO 250 mg BID MYESHA Administration Lisinopril 40 mg 10/24/21 10:00 10/25/21 09:35 Lisinopril 40 Mg Tab PO 40 mg QDAY MYESHA Administration Magnesium Hydroxide 30 ml 10/23/21 10:12 Magnesium Hydroxide (Mom) Oral Liqd Udc PO Q4H PRN Constipation Metoclopramide HCl 10 mg 10/23/21 10:12 Metoclopramide 10 Mg Tab PO Q6H PRN Nausea And Vomiting Morphine Sulfate 2 mg 10/23/21 10:57 Morphine 2 Mg/1 Ml Inj IV Q4H PRN Pain, Severe (7-10) Ondansetron HCl 4 mg 10/23/21 10:12 Ondansetron 4 Mg/2 Ml Inj IV Q8H PRN Nausea And Vomiting Promethazine HCl 25 mg 10/23/21 10:12 Promethazine 25 Mg Rect Supp IN Q6H PRN Nausea And Vomiting Sodium Chloride 10 ml 10/23/21 22:00 10/24/21 22:40 Sodium Chloride 0.9% 10 Ml Flush Syringe IV 10 ml BID MYESHA Administration Sodium Chloride 10 ml 10/23/21 10:12 Sodium Chloride 0.9% 10 Ml Flush Syringe IV PRN PRN LINE FLUSH
--- NOTE | 2021-10-25 13:44 | Vascular Lab Report ---
DUPLEX DOPPLER ULTRASOUND CAROTID, BILATERAL INDICATION / CLINICAL INFORMATION: cva. COMPARISON: CTA neck 05/24/2021. FINDINGS: RIGHT CAROTID: Minimal atherosclerotic plaque. - PLAQUE ESTIMATE (%): < 50% - CCA velocity: 62 cm/sec. - ICA peak systolic velocity: 50 cm/sec. - ICA/CCA PSV Ratio: Less than 2. Right Vertebral Artery: Antegrade flow. LEFT CAROTID: Minimal atherosclerotic plaque. - PLAQUE ESTIMATE (%): < 50% - CCA velocity: 36 cm/sec. - ICA peak systolic velocity: 71 cm/sec. - ICA/CCA PSV Ratio: Less than 2. Left Vertebral Artery: Antegrade flow. IMPRESSION: 1. Right Internal Carotid Artery: Less than 50% diameter stenosis. 2. Left Internal Carotid Artery: Less than 50% diameter stenosis. Velocity criteria are extrapolated from diameter data as defined by the Society of Radiologists in [place] [facility] Consensus Conference, Radiology 2003; 229;340-346. NO STENOSIS (NORMAL) - Plaque = none; ICA PSV < 125 cm/sec; ICA/CCA PSV Ratio < 2.0 <50% STENOSIS - Plaque < 50%; ICA PSV < 125 cm/sec; ICA/CCA PSV Ratio < 2.0 50-69% STENOSIS - Plaque > 50%; ICA PSV = 125-230 cm/sec; ICA/CCA PSV Ratio = 2.0-4.0 >70% BUT <100% STENOSIS - Plaque > 50%; ICA PSV > 230 cm/sec; ICA/CCA PSV Ratio > 4.0 NEAR OCCLUSION - Plaque = visible lumen; ICA PSV = high/low/none; ICA/CCA PSV Ratio = variable TOTAL OCCLUSION - Plaque = no lumen; ICA PSV = none; ICA/CCA PSV Ratio = N/A Scribed by: Berkley Mcwilliams RDMS, RVT, RMSKS Scribed: 10/25/2021 12:04 PM I have reviewed the images, agree with this report, and edited this report as needed. Signer Name: Cirilo Gregg MD Signed: 10/25/2021 1:40 PM Workstation Name: [id number]
[2021-10-26] MEDS: HEPARIN 5,000 UNIT/1 ML VIAL SUB-Q SCH (06:08)
[2021-10-26] MEDS: atenoloL 50 MG TAB PO SCH (09:51)
[2021-10-26] MEDS: ASPIRIN 325 MG TAB PO SCH (09:51)
[2021-10-26] MEDS: levETIRAcetam 500 MG TAB PO SCH (09:51)
[2021-10-26] MEDS: LISINOPRIL 40 MG TAB PO SCH (09:51)
[2021-10-26] MEDS: amLODIPine 10 MG TAB PO SCH (09:52)
--- NOTE | 2021-10-26 09:59 | Discharge Summary ---
Providers - Providers Date of Admission: 10/23/21 10:13 Date of discharge: 10/26/21 Attending physician: MAREK NOLASCO MD 10/23/21 10:12 Consult to Physician [CONS] Routine Comment: Consulting Provider: CONNIE HORTON Physician Instructions: Reason For Exam: TIA 10/23/21 10:13 Occupational Therapy Evaluate and Treat [CONS] Routine Comment: Reason For Exam: Neuro deficits Physical Therapy Evaluation and Treat [CONS] Routine Comment: Reason For Exam: Neuro deficits 10/25/21 07:34 Speech Therapy Evaluation and Treat [CONS] Routine Reason For Exam: Stroke workup Primary care physician: CHERYL DONALDSON Hospitalization Reason for admission: Transient ischemic attack Condition: Fair Pertinent studies: Reviewed. Procedures: None. Hospital course: 76-year-old female who presents with significant past medical history of hyp ertension and a left MCA CVA with residual aphasia and right hemiparesis who presents to the emergency department with complaints of altered mentation. Patient suffered left MCA CVA April 2021. Patient was seen here in April and noted to have on CTA and occlusion of the left MCA and was transferred emergently to [facility] for further evaluation. At baseline, patient has right hemiparesis and is aphasic. Patient is able to answer on occasion one- word responses but is essentially nonverbal. Patient is able to follow simple commands at baseline. Patient is also noted to be bedbound. Patient is to able to perform ADLs of eating with her left hand but that is essentially the extent of her functioning independently. The patient's daughter who was at the bedside gave history that patient had a slight change in her status from her usual baseline this morning. The daughter noted increased respirations with grunting in the other room. Daughter reports that when she went to check on her mother she noticed that she was not making eye contact and "staring into space". No witnessed seizure activity. No bowel or bladder incontinence. Patient is back to her baseline currently. Patient denies any pain or shortness of breath. In the ED, the patient was hemodynamically stable. Patient underwent CT head noncontrast and carotid Doppler ultrasound that were found to be unremarkable. TTE revealed an EF of 50-55% with normal-sized LV, normal LV systolic function, mild hypokinesis in the basal inferoseptal wall, mild hypokinesis in the basal anterolateral wall neurology was consulted for further management. Physical therapy and Occupational Therapy were consulted and recommended that the patient can be discharged home without needs for physical therapy. The patient will continue aspirin 325 mg daily, atorvastatin 40 mg daily. Patient is medically clear for discharge. Disposition: 01 HOME / SELF CARE / HOMELESS Final Discharge Diagnosis (Prints w/discharge instructions): Transient ischemic attack, history of left MCA cerebrovascular accident, right hemiparesis, expressive aphasia, hypertension. Time spent for discharge: 45 min Core Measure Documentation - Palliative Care Palliative Care/ Comfort Measures: Not Applicable - Core Measures Any of the following diagnoses?: none - Stroke Discharge Requirements Statin for LDL = or >70 mg/dl on DC: Yes Anticoag for atrial fib/atrial flutter: Not Applicable Antithrombotic for ischemic stroke: No Reason for no antithrombotic on DC: Not Indicated Exam - Constitutional Vitals: Temp Pulse Resp BP Pulse Ox 98.0 F 66 16 136/66 100 10/26/21 07:19 10/26/21 09:52 10/26/21 07:19 10/26/21 09:52 10/26/21 08:06 General appearance: Present: no acute distress, other (Baseline aphasia) - EENT Eyes: Present: PERRL, EOM intact ENT: hearing intact, clear oral mucosa, dentition normal - Neck Neck: Present: supple, normal ROM - Respiratory Respiratory effort: normal Respiratory: bilateral: CTA - Cardiovascular Rhythm: regular Heart Sounds: Present: S1 & S2 - Extremities Extremities: no ischemia, pulses intact, pulses symmetrical, No edema, normal temperature, normal color, abnormal (Right hemiparesis) Peripheral Pulses: within normal limits - Abdominal General gastrointestinal: Present: soft, non-tender, non-distended, normal bowel sounds Female genitourinary: Present: deferred - Rectal Rectal Exam: deferred - Integumentary Integumentary: Present: clear, warm, dry - Musculoskeletal Musculoskeletal: right sided weakness, other (Weakness of left lower extremity; bedbound) - Psychiatric Psychiatric: appropriate mood/affect, cooperative - Neurologic Neurologic: CNII-XII intact - Allied Health Allied health notes reviewed: nursing Plan Activity: no restrictions Diet: low cholesterol, low salt Additional Instructions: 76-year-old female who presents with significant past medical history of hypertension and a left MCA CVA with residual aphasia and right hemiparesis who presents to the emergency department with complaints of altered mentation. Patient suffered left MCA CVA April 2021. Patient was seen here in April and noted to have on CTA and occlusion of the left MCA and was transferred emergently to [facility] for further evaluation. At baseline, patient has right hemiparesis and is aphasic. Patient is able to answer on occasion one-word responses but is essentially nonverbal. Patient is able to follow simple commands at baseline. Patient is also noted to be bedbound. Patient is to able to perform ADLs of eating with her left hand but that is essentially the extent of her functioning independently. The patient's daughter who was at the bedside gave history that patient had a slight change in her status from her usual baseline this morning. The daughter noted increased respirations with grunting in the other room. Daughter reports that when she went to check on her mother she noticed that she was not making eye contact and "staring into space". No witnessed seizure activity. No bowel or bladder incontinence. Patient is back to her baseline currently. Patient denies any pain or shortness of breath. In the ED, the patient was hemodynamically stable. Patient underwent CT head noncontrast and carotid Doppler ultrasound that were found to be unremarkable. TTE revealed an EF of 50-55% with normal-sized LV, normal LV systolic function, mild hypokinesis in the basal inferoseptal wall, mild hypokinesis in the basal anterolateral wall neurology was consulted for further management. Physical therapy and Occupational Therapy were consulted and recommended that the patient can be discharged home without needs for physical therapy. The patient will continue aspirin 325 mg daily, atorvastatin 40 mg daily. Patient is medically clear for discharge. Care Plan Goals: Patient is medically clear for discharge. Assessment: 76-year-old female who presents with significant past medical history of hypertension and a left MCA CVA with residual aphasia and right hemiparesis who presents to the emergency department with complaints of altered mentation. Patient suffered left MCA CVA April 2021. Patient was seen here in April and noted to have on CTA and occlusion of the left MCA and was transferred emergently to [facility] for further evaluation. At baseline, patient has right hemiparesis and is aphasic. Patient is able to answer on occasion one- word responses but is essentially nonverbal. Patient is able to follow simple commands at baseline. Patient is also noted to be bedbound. Patient is to able to perform ADLs of eating with her left hand but that is essentially the extent of her functioning independently. The patient's daughter who was at the bedside gave history that patient had a slight change in her status from her usual baseline this morning. The daughter noted increased respirations with grunting in the other room. Daughter reports that when she went to check on her mother she noticed that she was not making eye contact and "staring into space". No witnessed seizure activity. No bowel or bladder incontinence. Patient is back to her baseline currently. Patient denies any pain or shortness of breath. In the ED, the patient was hemodynamically stable. Patient u nderwent CT head noncontrast and carotid Doppler ultrasound that were found to be unremarkable. TTE revealed an EF of 50-55% with normal-sized LV, normal LV systolic function, mild hypokinesis in the basal inferoseptal wall, mild hypokinesis in the basal anterolateral wall neurology was consulted for further management. Physical therapy and Occupational Therapy were consulted and recommended that the patient can be discharged home without needs for physical therapy. The patient will continue aspirin 325 mg daily, atorvastatin 40 mg daily. Patient is medically clear for discharge. Follow up with: CANDICE BUCHANAN MD [Staff Physician] - 7 Days CHERYL DONALDSON MD [Primary Care Provider] - 10 Days Prescriptions: AtorvaSTATin [Lipitor] 40 mg PO QHS #30 tablet amLODIPine 10 mg PO DAILY #30 tablet Aspirin 325 mg PO QDAY #30 tablet levETIRAcetam [Keppra TAB] 250 mg PO BID #60 tablet atenoloL [Tenormin] 50 mg PO DAILY #30 tab lisinopriL [Zestril TAB] 40 mg PO QDAY #30 tablet
[2021-10-26 11:29] VITALS: BP 125/82
== END 2021-10-26 14:31 | disposition home health service (06) | DRG 69 ==
LOC: ED 01:32 → 4A 10:13
PROVIDERS: ADMIT Hospitalist; ATTEND Student in an Organized Health Care Education/Training Program
DX: G45.9 Transient cerebral ischemic attack, unspecified (principal); R47.01 Aphasia; I69.851 Hemiplegia and hemiparesis following other cerebrovascular disease affecting right dominant side; R29.818 Other symptoms and signs involving the nervous system; E78.5 Hyperlipidemia, unspecified; I10 Essential (primary) hypertension; Z74.01 Bed confinement status; Z79.899 Other long term (current) drug therapy
CPT/HCPCS: 36415; 70450; 80048; 80061; 82962; 83036; 85025; 85610; 85670; 85730; 93005; 93306; 93880; G0378; C8929; J1644